=== PATIENT | female | born 1935 | race Caucasian/White ===

== ENCOUNTER → 2024-06-15 | Outpatient (CLI) | payer MEDICARE, SELFPAY ==
[2024-06-15 12:00] LABS: Thyroid Stimulating Hormone 3.79 uIU/mL (0.55-4.78)
== END | disposition home or self-care (01) ==
LOC: COPL 10:04
PROVIDERS: PCP Family Medicine; Referring Provider Family Medicine; Visit Provider Family Medicine
DX: E03.8 Other specified hypothyroidism (principal)
CPT/HCPCS: 36415; 84439; 84443

== ENCOUNTER 2024-06-29 11:03 | Outpatient (AMB) | payer MEDICARE, SELFPAY ==
[2024-06-29 11:20] VITALS: BP 170/78; PULSE 62; RESP 18; TEMP 36.3; O2SAT 95; BMI 17.6
--- NOTE | 2024-06-29 11:20 | GSCOFFNT_ITS ---
Vital Signs - [facility] 06/29/24 11:20 Height 1.73 m Height Method Stated Weight 52.815 kg Weight Measurement Method Standing Scale BMI 17.6 BP 170/78 H Blood Pressure Source Automatic Cuff Blood Pressure Location Left Upper Arm Position Sitting Respiration 18 Pulse 62 Pulse Source Monitor Temp 97.3 F Temp Source Temporal Artery Scan Pulse Oximetry (%) 95 Oxygen Delivery Method Room Air Med/Allergies Allergies & Medications Allergies egg Allergy (Severe, Verified 06/29/24 11:21) UPPER GASTRO PROBLEMS Penicillins Allergy (Verified 06/29/24 11:21) Vomiting Cephalosporins Adverse Reaction (Verified 06/29/24 11:21) Vomiting Medication Reconciliation tramadol 50 mg tablet 25 mg (1/2 x 50 mg) PO QDAY #15 tabs 02/02/21 [Rx Confirmed 06/29/24] amlodipine 5 mg tablet 5 mg PO DAILY 10/20/22 [History Confirmed 06/29/24] atenolol 50 mg tablet 50 mg PO QDAY 10/20/22 [History Confirmed 06/29/24] donepezil 10 mg tablet 10 mg PO DAILY 10/20/22 [History Confirmed 06/29/24] levothyroxine 88 mcg tablet 88 mcg PO DAILY 10/20/22 [History Confirmed 06/29/24] memantine 5 mg tablet 5 mg PO DAILY 10/20/22 [History Confirmed 06/29/24] olmesartan 40 mg-hydrochlorothiazide 12.5 mg tablet 12.5 tab PO DAILY 10/20/22 [History Confirmed 06/29/24] MA Intake Visit Data Collection New Patient or Established: New Patient (never been to [facility]) Seen by Clinical Staff ONLY (RN/MA): No Reason for Visit:: BOWEL MOVEMENT CONCERNS Pain Present Currently: No PCP or OBGYN visit in last 3 months: Yes Hx Now: No Do You Feel Safe at Home: Yes Authorities Contacted: N/A Smoking Status Smoking Status: Never smoker Immunization / Flu Flu Vaccine in the Last 12 Months: Yes Flu Vaccine Exclusion Criteria: Already Received Past Medical History Past Medical History NEUROLOGIC: Positive Dementia CARDIAC: Positive Cardiac Disorders and Hypertension; Negative Congestive Heart Failure RESPIRATORY: Negative Chronic Obstructive Pulmonary Disease (COPD) GENITOURINARY: Negative Renal Disease ENDOCRINE: Positive Hypothyroidism; Negative Diabetes Mellitus Type 1 or Diabetes Mellitus Type 2 Social History SMOKING STATUS: Smoking status: Never smoker LIVES WITH: Lives With: Spouse HPI HPI Narrative 88F referred for frequent BMs. Per daughter, for the past few months pt has been unable to fully evacuate her stools so that she will need to use the bathroom up to 7 times in an hour, each time expelling small amounts of soft stool. She uses a pad inside of depends and finds that the pads regularly contain small amounts of stool. She denies any pain, bleeding or itching and is unsure if there is any protuberance such as hemorrhoids. Pt has had colonoscopies in the past but is unsure of when the last was. She drinks minimal water daily, was initially prescribed fiber which she felt did not help but has not tried any other remedies PMH: HTN, hypothyroidism PSHx: Hysterectomy, cholecystectomy, tonsillectomy, excision of melanoma of leg Meds: No antiplt or anticoagulation Allergies: PCN Social hx: gave vaginally, uses a walker, lives at home with her who is currently in the hospital and daughters help with caretaking ROS Review of Systems Systems Reviewed: All systems reviewed, normal except as documented Objective/Exam General General Appearance: alert, cooperative and well groomed Resp Respiratory exam: Absent respiratory distress Assessment & Plan Diagnosis / Problem List (1) Fecal incontinence: Status: Acute Assessment & Plan: 88F with HTN, hypothyroidism presenting with 3-month history of frequent small BMs. I explained that this may be related to pelvic floor weakness due to age and history of vaginal births, and could potentially be mitigated with regular enemas and physical therapy. I will investigate with a sigmoidoscopy and explained benefits/risks including perforation and/or the need to abort for safety. I will prescribe golytely as prep but instructed pt and daughter that she does not need to take it all, likely does not even need half of it but would benefit from drinking enough so that her stool is clear before the procedure. All questions were answered and they are agreeable to proceeding Advanced Care Planning Advance care planning discussed with:: patient and child Office Procedures GNS Level of Care Nursing/Assessment Patient Status: Initial/New Patient Nursing Assessment/Reassesment: Medication Reconciliation, Update PMH in EMR and Vital Signs Coordination of Care: Complex Care and Chronic Disease 1-5, Consent,records obtained, informed consent, Education Simp Pt/Fam, Results/Orders obtained and Staff clarify orders New Patient Charge New Patient Point Assignment: [id number] New Patient Point Charge: INTERNATIONAL CONTROLLER Level 3 ([id number]) Patient Portal Questionaires Social History Tobacco History Smoking Status: Never smoker Domestic Abuse History Do You Feel Safe at Home: Yes Review of Systems Report any current symptoms Only answer those that you have currently: Past Medical History Past Medical History Have you ever been diagnosed with any of the following: Neurological Problems Dementia: Yes Cardiology Problems Congestive Heart Failure: No Hypertension: Yes Respiratory Problems Chronic Obstructive Pulmonary Disease (COPD): No Genital/Urinary Problems Renal Disease: No Endocrine Problems Diabetes Mellitus Type 1: No Diabetes Mellitus Type 2: No Hypothyroidism: Yes
== END 2024-06-29 11:57 | disposition home or self-care (01) ==
LOC: HODSRG 11:03
PROVIDERS: PCP Family Medicine; Referring Provider Family Medicine; Supervising Provider Surgery; Visit Provider Surgery
DX: R15.9 Full incontinence of feces (principal); I10 Essential (primary) hypertension; E03.9 Hypothyroidism, unspecified
CPT/HCPCS: 99203; G0463

== ENCOUNTER → 2024-06-30 | Outpatient (CLI) | payer MEDICARE, SELFPAY ==
[2024-06-30 10:19] LABS: Basophils % (Auto) 0 % (0-2.5); Eosinophils # (Auto) 0.2 Thou/mm3 (0.0-0.5); Eosinophils % (Auto) 3 % (0-10); Hematocrit 34.7 % (36.0-46.0); Hemoglobin 11.2 g/dL (12.0-16.0); Immature Granulocytes % (Auto) 0 % (0-0); Immature Granulocytes Auto 0.01 Thou/mm3 (0.00-0.00); Lymphocytes # (Auto) 0.6 Thou/mm3 (1.0-4.8); Lymphocytes % (Auto) 11 % (10-50); Mean Corpuscular HGB Conc 32.3 g/dl (31.0-37.0); Mean Corpuscular Hemoglobin 30.9 pg (25.0-35.0); Mean Corpuscular Volume 96 fL (80-100); Monocytes # (Auto) 0.5 Thou/mm3 (0.0-0.8); Monocytes % (Auto) 8 % (0-12); Neutrophils # (Auto) 4.2 Thou/mm3 (1.8-7.7); Neutrophils % (Auto) 77 % (37-80); Nucleated Red Blood Cell % 0 /100 WBC (0); Platelet Count 221 Thou/mm3 (140-440); RDW Standard Deviation 47.2 fL (36.4-46.3); Red Blood Count 3.62 Miln/mm3 (4.00-5.20); White Blood Count 5.4 Thou/mm3 (3.6-11.0)
[2024-06-30 10:38] LABS: Alanine Aminotransferase 11 U/L (10-49); Alkaline Phosphatase 89 U/L (46-116); Anion Gap 5 (7-16); Aspartate Amino Transferase 15 U/L (0-34); BUN/Creatinine Ratio 34 Ratio (12-20); Bilirubin,Direct 0.1 mg/dL (0.0-0.3); Bilirubin,Total 0.5 mg/dL (0.3-1.2); Blood Urea Nitrogen 24 mg/dL (9-23); Calcium 9.3 mg/dL (8.3-10.6); Carbon Dioxide 31.6 mMol/L (20.0-31.0); Chloride 103 mMol/L (98-107); Creatinine (Component) 0.7 mg/dL (0.6-1.3); Glucose 107 mg/dL (74-106); Osmolality,Calculated 283 (275-295); Potassium 4.1 mMol/L (3.4-5.1); Sodium 140 mMol/L (136-145); eGFR > 60 See Note
== END | disposition home or self-care (01) ==
LOC: COPL 09:20
PROVIDERS: PCP Family Medicine; Referring Provider Surgery; Visit Provider Surgery
DX: D64.9 Anemia, unspecified (principal); R15.9 Full incontinence of feces
CPT/HCPCS: 36415; 80048; 80076; 85025

== ENCOUNTER 2024-07-01 10:44 | Emergency (ER) | payer MEDICARE, SELFPAY ==
[2024-07-01 10:47] VITALS: BP 180/80; PULSE 66; RESP 19; TEMP 36.6; O2SAT 99
[2024-07-01 10:49] VITALS: PULSE 63; BMI 16.9
--- NOTE | 2024-07-01 11:00 | PC.NURSE ---
PT UNABLE TO EXPLAIN QUALITY OF CHEST PAIN; PT STATES, I DON'T KNOW; I'M NOT HURTING ANYMORE. I'M FINE.
--- NOTE | 2024-07-01 11:04 | EKG_ITS ---
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
--- NOTE | 2024-07-01 11:22 | XR_ITS ---
Examination: AP lateral chest 2 views Technique: Upright AP lateral chest 2 views Exam date and time: July 01, 2024 1046 hrs. Comparison October 09, 2010 Indications: Chest pain today. Findings: Moderate hyperexpansion Accentuation basilar bronchovascular markings. Normal heart size No lobar pneumonia Impression: Basilar bronchitis pattern
--- NOTE | 2024-07-01 11:23 | EDNOTE_ITS ---
ED General RME/HPI General Chief complaint: Chest Pain Stated complaint: CHEST PAIN Arrival date/time: 07/01/24 10:44 RME / HPI RME / HPI narrative: Patient is a 88 years old female with PMH of hypertension, hypothyroidism, fecal incontinence, dementia presented to the ED after she developed chest pain when she was visiting her at the hospital. She is accompanied by her daughter, who reported patient is under a lot of stress because of her who is currently admitted to [facility]. She developed brief episode of chest pain suddenly when she was leaving hospital which resolved at the time of evaluation. She cannot describe pain, which mostly was located in the middle of her chest, denies radiation to her left arm, neck or back. She denies any SOB, abdominal pain, nausea, vomiting, diaphoresis, fever, chills. Related Data Home Medications ?Medication ?Instructions ?Recorded ?Confirmed amlodipine 5 mg tablet 5 mg PO DAILY 10/20/2206/29 atenolol 50 mg tablet 50 mg PO QDAY 10/20/2206/29 donepezil 10 mg tablet 10 mg PO DAILY 10/20/2206/11 levothyroxine 88 mcg tablet 88 mcg PO DAILY 10/20/22 0 06/29/24 memantine 5 mg tablet 5 mg PO DAILY 10/20/2206/29 olmesartan 40 12.5 tab PO DAILY 10/20/22 0 06/29/24 mg-hydrochlorothiazide 12.5 mg tablet Previous Rx's ?Medication ?Instructions ?Recorded tramadol 50 mg tablet 25 mg (1/2 x 50 mg) PO QDAY #15 02/02/21 tabs peg 3350-electrolytes 236 240 ml PO Q10M #4,000 mL gram-22.74 gram-6.74 gram-5.86 gram solution (Golytely) Allergies Allergy/AdvReac Type Severity Reaction Status Date / Time egg Allergy Severe UPPER Verified 06/29/24 11:21 GASTRO PROBLEMS Penicillins Allergy Vomiting Verified 06/29/24 11:21 Cephalosporins AdvReac Vomiting Verified 06/29/24 11:21 Review of Systems Review of Systems Systems Reviewed: All systems reviewed, normal except as documented ED Exam Narrative Physical exam: Gen: Well-developed and well-nourished elderly female. HEENT: NCAT, PERRLA, EOMI, MMM, anicteric conjunctivae. CVS: normal S1 and S2. RRR. No M/R/G. Resp: CTA B/L. No rhonchi, rales, crackles or wheezing. Abd: soft, non-tender, non-distended. BS+ in all 4 quadrants. MSK: Good ROM in BUE & BLE. No edema or rash. BLE skin is dry. Neuro: CN II-XII grossly intact. Strength 5/5 in BUE & BLE. Alert and oriented x2. Psych: appropriate mood and affect. Course Quality Measures none Orders Category Date Time Status EKG (ED ONLY) *Do not use* NOW Care 07/01/24 11:04 Completed CXR2 [XR chest 2V] Stat Exams 07/01/24 11:22 Completed EKG (ED Only) Stat Exams 07/01/24 11:04 Draft Troponin I Stat Lab 07/01/24 12:18 Completed Troponin I Stat Lab 07/01/24 14:59 Completed Vital Signs Vital signs: Vital Signs Temperature 97.9 F 07/01/24 10:47 Pulse Rate 66 07/01/24 10:47 Respiratory Rate 19 07/01/24 10:47 Blood Pressure 180/80 H 07/01/24 10:47 Pulse Oximetry (%) 99 07/01/24 10:47 Oxygen Delivery Method Room Air 07/01/24 10:47 Procedures -ED EKG Interpretation #1: Date of EK07/01/24 Time of EK:18 Rate: 63 Interpretation: Reviewed by me EKG Impression: Normal sinus rhythm Additional EKG comment: LVH MDM Patient data External records reviewed:: [facility] previous records Clinical information provided by:: patient and family Social determinants that could affect healthcare access:: none Patient has the following chronic illnesses:: hypertension, hypothyroidism, fecal incontinence, dementia How is presenting disease/condition affected by chronic disease/condition?: exacerbated by Evaluation data The following diagnostics were reviewed and interpreted by me:: lab results, radiology exam(s) and EKG tracing(s) Lab and/or radiology exams considered but not ordered:: cbc, cmp Interpretation Summary: no acute cardiac findings Medications Medications considered but not ordered:: aspirin, statin Medication administrations:: na Consultations Consultation(s) initiated? (list below): No Diagnosis Differential Diagnosis ED Complaint MDM: STEMI, NSTEMI, pericarditis, pneumonia, angina, musculoskeletal, anxiety Most likely diagnosis given after review of the tests above:: Anxiety Admission Indicated Admission indicated?: not indicated Explain why admission is indicated or not indicated:: EKG negative for ST segment changes. Troponin I negative x2. Cardiac and pulmonary acute problems were ruled out. Admission Request Was there a request for admission?: No Disposition Plan Disposition Plan: Discharge Discharge Attestation Discharge Attestation: The patient and all family members were given an opportunity to ask questions and understood the discharge instructions. Discharge instructions specifically effects, indications for sooner follow up or return to the emergency department, and the expected course of current diagnosis. Patient condition: Stable Medical Decision Making MDM Narrative MDM Narrative: Patient is an 88-year-old female presenting with a brief episode of chest pain, likely related to stress as it resolved spontaneously and had no associated concerning symptoms such as SOB, nausea, or diaphoresis. Cardiac and pulmonary causes ruled out based on physical exam findings, EKG (sinus rhythm, LVH), and absence of systemic symptoms. Heart score 4, moderate risk. Well's score 0. Pain likely non-cardiac and stress-related given context and history. Patient's emotional distress due to her ?s hospitalization is a significant contributing factor. Encourage routine follow-up with PCP within 1 week to monitor BP, review chronic conditions, and further evaluate stress-related sym ptoms. Differential Diagnosis Differential Diagnosis: STEMI, NSTEMI, pericarditis, pneumonia, angina, musculoskeletal, anxiety Lab Data Labs: Lab Results 07/01/24 07/01/24 Range/Units 12:18 14:59 Troponin I < 0.002 < 0.020 (0.0-0.045) ng/mL Discharge Plan Plan Patient Disposition: HOME (Self Care) Patient condition on transfer: Stable Prescriptions/Referrals Prescriptions/Med Rec: No Action peg 3350-electrolytes [Golytely] 236-22.74-6.74 -5.86 gram recon soln 240 ml PO Q10M Qty: 4000 0RF Rx Instructions: DO NOT DRINK ALL. Drink only until fecal effluent is clear tramadol 50 mg tablet 25 mg PO QDAY Qty: 15 0RF donepezil 10 mg tablet 10 mg PO DAILY Patient Comments: TAKE 1 TABLET BY MOUTH EVERY DAY IN THE EVENING amlodipine 5 mg tablet 5 mg PO DAILY Patient Comments: TAKE 1 TABLET BY MOUTH EVERY DAY levothyroxine 88 mcg tablet 88 mcg PO DAILY Patient Comments: TAKE 1 TABLET BY MOUTH EVERY DAY olmesartan-hydrochlorothiazide 40-12.5 mg tablet 12.5 tab PO DAILY Patient Comments: TAKE 1 TABLET BY MOUTH EVERY DAY FOR 90 DAYS memantine 5 mg tablet 5 mg PO DAILY Patient Comments: TAKE 1 TABLET BY MOUTH EVERY DAY atenolol 50 mg Tablet 50 mg PO QDAY Referrals: Loida Langford MD [Primary Care Provider] - In 1 week Problem List Clinical Impression: Chest pain due to psychological stress Patient/Caregiver Discharge Instructions Additional Instructions: Follow up with PCP within 1 week. Continue home medications as prescribed. Take Tylenol for pain as needed. Return to the ED if symptoms recur or worsen. Print Language: Yakut Stand Alone Forms: Annette Award Info., Patient Portal Info Letter
[2024-07-01 12:35] VITALS: BP 185/84; PULSE 74; RESP 21; TEMP 36.1; O2SAT 96
[2024-07-01 12:42] LABS: Troponin I < 0.002 ng/mL (0.0-0.045)
[2024-07-01 14:00] VITALS: BP 181/83; PULSE 76; RESP 16; TEMP 36.3; O2SAT 99
[2024-07-01 15:44] LABS: Troponin I < 0.020 ng/mL (0.0-0.045)
[2024-07-01 16:40] VITALS: BP 173/74; PULSE 88; RESP 17; TEMP 36.8; O2SAT 96
== END 2024-07-01 16:45 | disposition home or self-care (01) ==
PROVIDERS: Student in an Organized Health Care Education/Training Program; Emergency Provider Emergency Medicine; PCP Family Medicine
DX: R07.9 Chest pain, unspecified (principal); E03.9 Hypothyroidism, unspecified; I10 Essential (primary) hypertension; F03.94 Unspecified dementia, unspecified severity, with anxiety; F43.9 Reaction to severe stress, unspecified
CPT/HCPCS: 36415; 71046; 84484; 93005; 99283